=== PATIENT | female | born 1955 | race Caucasian/White ===

== ENCOUNTER 2021-11-16 14:15 | Outpatient (CLI) | payer OTHER, MEDICARE, SELFPAY ==
[2021-11-16 15:54] LABS: Vitamin D 25 Hydroxy 25.2 ng/mL
== END 2021-11-16 14:16 | disposition home or self-care (01) ==
PROVIDERS: PCP Family Medicine; Visit Provider Orthopaedic Surgery
DX: E55.9 Vitamin D deficiency, unspecified (principal)
CPT/HCPCS: 36415; 82306

== ENCOUNTER → 2022-02-09 15:40 | Outpatient (CLI) | payer MEDICARE, SELFPAY ==
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
== END ==
PROVIDERS: PCP Family Medicine; Visit Provider Orthopaedic Surgery
DX: M81.0 Age-related osteoporosis without current pathological fracture (principal); M85.89 Other specified disorders of bone density and structure, multiple sites
CPT/HCPCS: 77080

== ENCOUNTER 2024-03-11 16:36 | Emergency (ER) | payer OTHER, MEDICARE, SELFPAY ==
--- NOTE | ~2024-03-11 | XR_ITS ---
XR wrist LT min 3V Ordering provider: Prema Gomez III, DO History: . . pain along 1st metacarpal to wrist . Comparison: None. FINDINGS: BONES: No acute fracture or dislocation. No definite scaphoid fracture. JOINT SPACES: Osteoarthritic changes of the scaphotrapezial and first carpometacarpal joints. SOFT TISSUES: Normal. IMPRESSION: No acute osseous abnormality left wrist. Reviewed, dictated and finalized at location A.
[2024-03-11 16:40] VITALS: BP 145/82; PULSE 92; RESP 20; TEMP 36.3; O2SAT 98
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
--- NOTE | 2024-03-11 18:40 | PC.NURSE ---
Zaynab approved by MD Gomez prior to d/c.
== END 2024-03-11 18:59 | disposition home or self-care (01) ==
LOC: ANHED 17:55
PROVIDERS: Emergency Provider Emergency Medicine; PCP Family Medicine
DX: S69.92XA Unspecified injury of left wrist, hand and finger(s), initial encounter (principal); E55.9 Vitamin D deficiency, unspecified; M85.80 Other specified disorders of bone density and structure, unspecified site; V49.40XA Driver injured in collision with unspecified motor vehicles in traffic accident, initial encounter
CPT/HCPCS: 29125; 73110; 99283

== ENCOUNTER → 2024-03-21 11:27 | Outpatient (CLI) | payer OTHER, SELFPAY ==
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
== END ==
PROVIDERS: PCP Nurse Practitioner Family; Visit Provider Nurse Practitioner Family
DX: M19.032 Primary osteoarthritis, left wrist (principal); M19.042 Primary osteoarthritis, left hand
CPT/HCPCS: 73110; 73130